=== PATIENT | female | born 1980 | race Caucasian/White ===

== ENCOUNTER 2020-02-08 16:59 | Emergency (ER) | payer SELFPAY ==
[2020-02-08] MEDS ORDERED: methylPREDNISolone Sod Succ/PF 125 MG/2 ML VIAL ONE (17:26)
[2020-02-08] MEDS ORDERED: AMOXicillin 250 MG CAP ONE (17:26)
== END 2020-02-08 17:34 | disposition home or self-care (01) ==
LOC: BURERS 16:59
DX: R59.0 Localized enlarged lymph nodes (principal); F17.210 Nicotine dependence, cigarettes, uncomplicated
CPT/HCPCS: 96372; 99283; J2930